=== PATIENT | male | born 1970 | race Caucasian/White ===

== ENCOUNTER 2017-11-22 07:21 | Inpatient (IN) | payer MEDICAID, OTHER ==
[~2017-11-22] VITALS: Ht 188 cm; Wt 98.0 kg
[~2017-11-22 07:21] MED LIST: BUPIVACAINE HCL/PF 0.5% 30 ML VIAL ONE; BUPIVACAINE LIPOSOME/PF 1.3%-13.3MG/ML SUSPENSION 10 ML VIAL INJ ONE; CLINDAMYCIN 600 MG/D5% WATER 50 ML IV ONE; GUM MASTIC/STORAX/MSAL/ALCOHOL LIQUID 0.67 ML VIAL TP ONE; RINGERS SOLUTION,LACTATED 1,000 ML IV ONE; TAMS0.4C32 PO; VANCOMYCIN HCL 500 MG/VIAL ONE
[2017-11-22 07:56] LABS: BASOPHILS % (AUTO) 1.1 % (0.0-2.0); HEMOGLOBIN 14.7 g/dL (13.5-17.5); LYMPHOCYTES # (AUTO) 1.6 K/uL (1.0-4.8); LYMPHOCYTES % (AUTO) 34.5 % (22.0-44.0); MEAN CORPUSCULAR HEMOGLOBIN 30.6 pg (26.0-34.0); MEAN CORPUSCULAR HGB CONC 34.2 G/dL (31.0-37.0); MEAN CORPUSCULAR VOLUME 89 fL (80-100); MONOCYTES # (AUTO) 0.3 K/uL (0.1-1.0); MONOCYTES % (AUTO) 7.1 % (2.0-9.0); NEUTROPHILS # (AUTO) 2.3 K/uL (1.8-7.7); NEUTROPHILS % (AUTO) 48.3 % (40.0-70.0); PLATELET COUNT (AUTO) 172 K/uL (150-450); RED BLOOD CELL COUNT(AUTO) 4.81 MIL/uL (4.50-5.90); RED CELL DISTRIBUTION WIDTH 13.2 % (11.5-14.5)
[2017-11-22 08:09] LABS: ANION GAP 8 mmol/L (8-16); CALCIUM, TOTAL 9.2 mg/dL (8.8-10.5); CARBON DIOXIDE 28 mmol/L (22-29); CHLORIDE 105 mmol/L (98-107); CREATININE 1.08 mg/dL (0.60-1.30); GLOMERULAR FILTR. RATE CALC > 60 mL/min (>60); GLUCOSE,RANDOM 102 mg/dL (70-110); POTASSIUM 4.1 mmol/L (3.5-5.1); SODIUM SERUM 141 mmol/L (136-145); UREA NITROGEN, BLOOD 14 mg/dL (7-18)
[2017-11-22] MEDS ORDERED: MAG HYDROX/AL HYDROX/SIMETH 30 ML SUSP UDCUP PO PRN (09:15)
[2017-11-22] MEDS ORDERED: ZOLPIDEM TARTRATE 10 MG TABLET PO PRN (09:15)
[2017-11-22] MEDS ORDERED: BENZOCAINE/MENTHOL LOZENGE PO PRN (09:15)
[2017-11-22] MEDS ORDERED: DiphenhydrAMINE HCL 50 MG/ML VIAL IVP PRN (09:15)
[2017-11-22] MEDS ORDERED: HYDROmorphone 2 MG/ML SYRINGE IVP PRN ×2 (09:30→09:45)
[2017-11-22] MEDS ORDERED: FentaNYL CITRATE-PF 100 MCG/2 ML VIAL IVP PRN (09:30)
[2017-11-22] MEDS ORDERED: MEPERIDINE HCL/PF 25 MG/0.5 ML AMP IVP PRN (09:30)
[2017-11-22] MEDS ORDERED: OxyCODONE HCL/ACETAMINOPHEN 10-325 MG TABLET PO PRN (09:45)
[2017-11-22] MEDS ORDERED: CYCLOBENZAPRINE HCL 10 MG TABLET PO PRN (09:45)
[2017-11-22 11:23] VITALS: BP 124/87
[2017-11-22 15:45] VITALS: BP 121/82
[2017-11-22] MEDS: ACETAMINOPHEN 1000 MG/ISO-OSM 100 ML IV SCH ×2 (16:01→20:01)
[2017-11-22] MEDS: KETOROLAC TROMETHAMINE 15 MG/ML VIAL IVP SCH ×2 (18:00→23:17)
[2017-11-22] MEDS: DOCUSATE SODIUM 100 MG CAPSULE PO SCH (20:01)
[2017-11-22 20:10] VITALS: BP 122/64
[2017-11-23 00:12] VITALS: BP 126/65
[2017-11-23] MEDS: ACETAMINOPHEN 1000 MG/ISO-OSM 100 ML IV SCH ×2 (03:11→09:43)
[2017-11-23 03:30] VITALS: BP 127/80
[2017-11-23] MEDS ORDERED: KETOROLAC TROMETHAMINE 60 MG/2 ML VIAL IM ONE (05:28)
[2017-11-23] MEDS ORDERED: NEOSTIGMINE METHYLSULFATE 1 MG/ML 10 ML VIAL IVP ONE (05:28)
[2017-11-23] MEDS ORDERED: KETAMINE HCL 50 MG/ML 10 ML VIAL IVP ONE (05:28)
[2017-11-23] MEDS ORDERED: ROCURONIUM BROMIDE 10 MG/ML 5 ML VIAL IVP ONE (05:28)
[2017-11-23] MEDS ORDERED: DEXAMETHASONE SOD PHOS 4 MG/ML VIAL IVP ONE (05:28)
[2017-11-23] MEDS ORDERED: GLYCOPYRROLATE 0.2 MG/ML VIAL IM ONE (05:28)
[2017-11-23] MEDS ORDERED: PROPOFOL 1% 20 ML VIAL IVP ONE (05:28)
[2017-11-23] MEDS ORDERED: ONDANSETRON HCL 4 MG/2 ML VIAL IVP ONE (05:28)
[2017-11-23] MEDS ORDERED: LIDOCAINE/PF 2% 5 ML VIAL IM ONE (05:28)
[2017-11-23] MEDS ORDERED: MIDAZOLAM HCL 2 MG/2 ML VIAL IVP ONE (05:28)
[2017-11-23] MEDS: KETOROLAC TROMETHAMINE 15 MG/ML VIAL IVP SCH ×2 (05:42→12:13)
[2017-11-23 07:49] VITALS: BP 130/59
[2017-11-23] MEDS: DOCUSATE SODIUM 100 MG CAPSULE PO SCH (09:43)
== END 2017-11-23 12:40 | disposition home or self-care (01) | DRG 520 ==
LOC: OBSVTOIN 07:21 → 4E 07:21
PROVIDERS: ADMIT Orthopaedic Surgery Orthopaedic Surgery of the Spine; ATTEND Orthopaedic Surgery Orthopaedic Surgery of the Spine
PROC: 0SB20ZZ Excision of Lumbar Vertebral Disc, Open Approach (ICD-10-PCS; principal; 2017-11-22 09:30)
DX: M51.17 Intervertebral disc disorders with radiculopathy, lumbosacral region (principal); Z88.1 Allergy status to other antibiotic agents; M51.26 Other intervertebral disc displacement, lumbar region
CPT/HCPCS: 87081; 97161; 97165; 97535; J0131; J1100; J1885; J2250; J2405; J2704; J3370; J3490; J7120